=== PATIENT | female | born 1940 | race American Indian/Alaskan Native ===

== ENCOUNTER 2017-11-06 18:29 | Emergency (ER) | payer MEDICARE, OTHER ==
[2017-11-06 18:29] VITALS: BMI 29.2
[2017-11-06 18:50] VITALS: TEMP 98.1
--- NOTE | 2017-11-06 19:46 | ED PDOC ---
Arrival/HPI - General Chief Complaint: High Blood Pressure Time Seen by Provider: 11/06/17 19:05 Historian: Patient - History of Present Illness Narrative History of Present Illness (Text): 11/06/17 19:45 A 77 year old female presents to the emergency department for blood pressure check. Patient was with her visiting nurse earlier today and blood pressure was in the 240s according to family. Patient's blood pressure is currently 170/100. Patient does not take blood pressure medications. Patient denies any complaints today or currently. Symptom Onset: Sudden Symptom Course: Unchanged Activities at Onset: Rest Context: Home Past Medical History - Provider Review Nursing Documentation Reviewed: Yes - Infectious Disease Hx of Infectious Diseases: None - Cardiac Hx Cardiac Disorders: No - Pulmonary Hx Respiratory Disorders: No - Neurological Hx Neurological Disorder: Yes Other/Comment: Confusion at times. 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) - Hematological/Oncological Hx Blood Transfusions: No Hx Blood Transfusion Reaction: No - Musculoskeletal/Rheumatological Hx Musculoskeletal Disorders: No - Psychiatric Hx Substance Use: No - Surgical History Other/Comment: Left Breast from [place] - Anesthesia Hx Anesthesia Reactions: No Hx Malignant Hyperthermia: No Family/Social History - Physician Review Nursing Documentation Reviewed: Yes Family/Social History: No Known Family HX Smoking Status: Never Smoked Hx Alcohol Use: No Hx Substance Use: No Allergies/Home Meds Allergies/Adverse Reactions: Allergies No Known Allergies Allergy (Verified 11/06/17 18:55) Home Medications: Home Meds Medication Instructions Recorded Confirmed Aspirin [Ecotrin] 325 mg PO DAILY 01/09/15 11/06/17 Donepezil [Aricept] 10 mg PO DAILY 11/06/17 11/06/17 Review of Systems - Physician Review All systems were reviewed & negative as marked: Yes - Review of Systems Constitutional: absent: Fevers Respiratory: absent: SOB Gastrointestinal: absent: Abdominal Pain Musculoskeletal: absent: Back Pain Neurological: absent: Headache, Dizziness Physical Exam Vital Signs Reviewed: Yes Vital Signs Temp Pulse Resp BP Pulse Ox 11/06/17 21:04 96 H 18 160/88 H 98 11/06/17 21:02 96 H 18 160/88 H 98 11/06/17 19:56 66 18 162/94 H 99 11/06/17 18:43 98.1 F 66 17 171/101 H 99 Temperature: Afebrile Blood Pressure: Normal Pulse: Regular Respiratory Rate: Normal Appearance: Positive for: Well-Appearing, Non-Toxic, Comfortable Pain Distress: None Mental Status: Positive for: Alert and Oriented X 3 - Systems Exam Head: Present: Atraumatic, Normocephalic Pupils: Present: PERRL Extroacular Muscles: Present: EOMI Conjunctiva: Present: Normal Mouth: Present: Moist Mucous Membranes Neck: Present: Normal Range of Motion Respiratory/Chest: Present: Clear to Auscultation, Good Air Exchange. No: Respiratory Distress, Accessory Muscle Use Cardiovascular: Present: Regular Rate and Rhythm, Normal S1, S2. No: Murmurs Abdomen: No: Tenderness, Distention, Peritoneal Signs Back: Present: Normal Inspection Upper Extremity: Present: Normal Inspection. No: Cyanosis, Edema Lower Extremity: Present: Normal Inspection. No: Edema Neurological: Present: GCS=15, CN II-XII Intact, Speech Normal Skin: Present: Warm, Dry, Normal Color. No: Rashes Psychiatric: Present: Alert, Oriented x 3, Normal Insight, Normal Concentration Medical Decision Making ED Course and Treatment: 11/06/17 19:44 Impression: A 77 year old female with high blood pressure, denies any complaints. Plan: -- EKG -- labs -- Reassess and disposition Progress Notes: - Lab Interpretations Lab Results: 11/06/17 19:54 11/06/17 19:54 Lab Results 11/06/17 19:54: WBC 6.8, RBC 4.09, Hgb 12.8, Hct 37.7, MCV 92.2, MCH 31.3, MCHC 34.0, RDW 12.8, Plt Count 232, MPV 10.8, Gran % 59.4, Lymph % (Auto) 31.4, [place] % (Auto) 5.9, Eos % (Auto) 2.7, Baso % (Auto) 0.6, Gran # 4.04, Lymph # (Auto) 2.1, [place] # (Auto) 0.4, Eos # (Auto) 0.2, Baso # (Auto) 0.04 11/06/17 19:54: Sodium 146, Potassium 3.9, Chloride 105, Carbon Dioxide 32, Anion Gap 13, BUN 16, Creatinine 0.7, Est GFR ( Amer) > 60, Est GFR (Non- Af Amer) > 60, Random Glucose 121 H, Calcium 9.2, Total Bilirubin 0.3, AST 34, ALT 27, Alkaline Phosphatase 54, Lactate Dehydrogenase 582, Total Creatine Kinase 322 H, CK-MB (CK-2) 2.3, CK-MB (CK-2) % Cancelled, Troponin I < 0.01, Total Protein 7.8, Albumin 4.0, Globulin 3.8, Albumin/Globulin Ratio 1.1 - EKG Interpretation Interpreted by ED Physician: Yes Type: 12 lead EKG - Scribe Statement The provider has reviewed the documentation as recorded by the Aure Fonseca Provider Scribe Attestation: All medical record entries made by the Aure were at my direction and personally dictated by me. I have reviewed the chart and agree that the record accurately reflects my personal performance of the history, physical exam, medical decision making, and the department course for this patient. I have also personally directed, reviewed, and agree with the discharge instructions and disposition. Disposition/Present on Arrival - Present on Arrival Any Indicators Present on Arrival: No History of DVT/PE: No History of Uncontrolled Diabetes: No Urinary Catheter: No History of Decub. Ulcer: No History Surgical Site Infection Following: None - Disposition Have Diagnosis and Disposition been Completed?: Yes Diagnosis: Hypertension Disposition: HOME/ ROUTINE Disposition Time: 20:30 Condition: GOOD Discharge Instructions (ExitCare): High Blood Pressure (DC) Additional Instructions: Thank you for letting us take care of you today. The emergency medical care you received today was directed at your acute symptoms. If you were prescribed any medication, please fill it and take as directed. It may take several days for your symptoms to resolve. Return to the Emergency Department if your symptoms worsen, do not improve, or if you have any other problems. Please contact your doctor or call one of the physicians/clinics you have been referred to that are listed on the Patient Visit Information form that is included in your discharge packet. Bring any paperwork you were given at discharge with you along with any medications you are taking to your follow up visit. Our treatment cannot replace ongoing medical care by a primary care provider (PCP) outside of the emergency department. Thank you for allowing the [facility] team to be part of your care today. Follow up with your primary doctor in 2-3 days for a blood pressure check. Prescriptions: hydroCHLOROthiazide [Microzide] 12.5 mg PO DAILY #7 cap Referrals: Emerson Nielsen MD [Staff Provider] - Follow up with primary Forms: [employer] (Vietnamese)
[2017-11-06 19:58] VITALS: RESP 18
[2017-11-06 20:00] LABS: BASO # 0.04 K/mm3 (0.0-2.0); BASO % 0.6 % (0.0-3.0); EOS # 0.2 (0.0-0.7); EOS % 2.7 % (1.5-5.0); GRAN # 4.04 (1.4-6.5); GRAN % 59.4 % (50.0-68.0); HEMOGLOBIN 12.8 g/dL (12.0-16.0); LYMPH # 2.1 (1.2-3.4); LYMPH % 31.4 % (22.0-35.0); MEAN CELL VOLUME 92.2 fl (80.0-105.0); MEAN CORPUSCULAR HEMOGLOBIN 31.3 pg (25.0-35.0); MEAN PLATELET VOLUME 10.8 fl (7.0-11.0); MONO # 0.4 (0.1-0.6); MONO % 5.9 % (1.0-6.0); RBC 4.09 10^6/uL (3.5-6.1); RED CELL DISTRIBUTION WIDTH 12.8 % (11.5-14.5); WHITE BLOOD COUNT 6.8 10^3/ul (4.5-11.0)
[2017-11-06 20:08] LABS: ALB/GLOB RATIO 1.1 (1.1-1.8); CALCIUM 9.2 mg/dL (8.4-10.5); GFR AFRICAN-AMERICAN > 60; GFR NON-AFRICAN AMERICAN > 60
[2017-11-06 20:11] LABS: ALT/SGPT 27 U/L (7-56); AST/SGOT 34 U/L (14-36); BLOOD UREA NITROGEN 16 mg/dL (7-21)
[2017-11-06 20:19] LABS: TROPONIN I < 0.01 ng/mL
[2017-11-06 20:24] LABS: CK-MB 2.3 ng/mL (0.0-3.6)
[2017-11-06 21:03] VITALS: BP 160/88; PULSE 96; O2SAT 98
== END 2017-11-06 21:04 | disposition home or self-care (01) ==
LOC: ED 18:29
DX: I10 Essential (primary) hypertension (principal)